=== PATIENT | female | born 1945 | race Caucasian/White ===

== ENCOUNTER → 2021-02-05 | Outpatient (CLI) | payer MEDICARE, SELFPAY ==
[~2021-02-05] MED LIST: AMLODIPINE BESYL5 MG PO; ASPIRIN CHEWABL81 MG PO; ATORVASTATIN CA80 MG PO; COREG 12.5MG12.5 MG PO; DEMADEX 20 MG T20 MG PO; ISOSORBIDE MONO30 MG PO; LISINOPRIL40 MG PO; OMEPRAZOLE20 MG PO; RANOLAZINE ER500 MG PO; VITAMIN D21250 MCG PO; vitamin b12 INJ
[2021-02-05 07:36] LABS: HEMOGLOBIN 12.2 gm/dl (12.3-15.3); RED BLOOD COUNT 3.81 M/UL (4.00-5.10); WHITE BLOOD COUNT 8.8 K/UL (4.5-11.0)
[2021-02-05 08:00] LABS: BUN/CREATININE RATIO 14 (0-10)
== END ==
LOC: CATH 06:58
PROVIDERS: Internal Medicine Cardiovascular Disease
DX: I20.9 Angina pectoris, unspecified (principal); R07.9 Chest pain, unspecified; I10 Essential (primary) hypertension; Z82.61 Family history of arthritis; Z82.5 Family history of asthma and other chronic lower respiratory diseases; Z82.49 Family history of ischemic heart disease and other diseases of the circulatory system
CPT/HCPCS: 71045; 80048; 85025; 85610; 93005; 99152; 99153; C1769; C1887; C1894; J1644; J2250; J3010; J7030; Q9967

== ENCOUNTER → 2021-03-31 | Outpatient (CLI) | payer MEDICARE | LOC: HEART 5 09:00 | DX: I48.91 Unspecified atrial fibrillation (principal); R07.9 Chest pain, unspecified ==

== ENCOUNTER 2021-05-10 14:39 | Emergency (ER) | payer MEDICARE ==
[2021-05-10 16:06] LABS: HEMOGLOBIN 12.5 gm/dl (12.3-15.3); RED BLOOD COUNT 3.89 M/UL (4.00-5.10); WHITE BLOOD COUNT 9.5 K/UL (4.5-11.0)
[2021-05-10 17:20] LABS: BUN/CREATININE RATIO 15 (0-10)
== END 2021-05-10 18:40 | disposition home or self-care (01) ==
LOC: ER1 14:39
PROVIDERS: Physician Assistant Medical
DX: I10 Essential (primary) hypertension (principal); E78.5 Hyperlipidemia, unspecified; J44.9 Chronic obstructive pulmonary disease, unspecified; Z95.1 Presence of aortocoronary bypass graft; Z88.6 Allergy status to analgesic agent; Z79.899 Other long term (current) drug therapy
CPT/HCPCS: 71045; 80053; 82550; 82553; 83874; 83880; 84439; 84443; 84484; 85025; 93005; 96374; 99285; J0360

== ENCOUNTER → 2021-09-20 | Outpatient (CLI) | payer MEDICARE | LOC: HEART 5 07:50 | DX: I25.10 Atherosclerotic heart disease of native coronary artery without angina pectoris (principal); R09.89 Other specified symptoms and signs involving the circulatory and respiratory systems; R07.9 Chest pain, unspecified; I10 Essential (primary) hypertension | CPT/HCPCS: 78452; A9502; J2785 ==

== ENCOUNTER → 2021-11-18 | Outpatient (CLI) | payer MEDICARE | LOC: HEART 5 12:59 | DX: R00.2 Palpitations (principal) ==